=== PATIENT | female | born 1995 | race Caucasian/White ===

== ENCOUNTER 2018-03-26 19:21 | Emergency (ER) | payer BC ==
--- NOTE | 2018-03-26 20:21 | ER Document Report ---
ED Medical Screen (RME) - General Chief Complaint: Chest Pain Stated Complaint: CHEST PAIN Time Seen by Provider: 03/26/18 20:11 TRAVEL OUTSIDE OF THE [place] IN LAST 30 DAYS: No - HPI Notes: 03/26/18 20:21 Recently moved to the area with a history of lupus coming in for chest pain feeling unwell fevers patient not receive a flu shot this year - Related Data Allergies/Adverse Reactions: ciprofloxacin [From Cipro] Allergy (Severe, Verified 03/26/18 20:12) Anaphylaxis diphenhydramine [From Benadryl] Allergy (Severe, Verified 03/26/18 20:12) Anaphylaxis cephelexin Allergy (Severe, Uncoded 03/26/18 20:12) Anaphylaxis sulpha Allergy (Severe, Uncoded 03/26/18 20:12) Anaphylaxis Past Medical History - Social History Chew tobacco use (# tins/day): No Frequency of alcohol use: None Drug Abuse: None Renal/ Medical History: Reports: Hx Kidney Stones - stents. Denies: Hx Peritoneal Dialysis Past Surgical History: Reports: Hx Kidney (Renal Surgery) Physical Exam - Vital signs Vitals: Temp Pulse Resp BP Pulse Ox 98.4 F 97 16 111/77 100 03/26/18 19:40 03/26/18 19:40 03/26/18 19:40 03/26/18 19:40 03/26/18 19:40 Course - Vital Signs Vital signs: Temp Pulse Resp BP Pulse Ox 98.4 F 97 16 111/77 100 03/26/18 19:40 03/26/18 19:40 03/26/18 19:40 03/26/18 19:40 03/26/18 19:40
--- NOTE | 2018-03-26 20:48 | RADIOLOGY REPORT (SQ) ---
XR CHEST 2 VIEWS HISTORY: cp COMPARISON: None. FINDINGS: The heart size is normal. The lungs are clear. No pleural effusions or pneumothorax is seen. No acute bony findings. IMPRESSION: No evidence of acute cardiopulmonary disease.
[2018-03-26 21:01] LABS: ABSOLUTE EOSINOPHILS # (AUTO) 0.1 10^3/uL (0.0-0.6); ABSOLUTE LYMPHOCYTES (AUTO) 1.6 10^3/uL (0.5-4.7); ABSOLUTE MONOCYTES (AUTO) 0.8 10^3/uL (0.1-1.4); ABSOLUTE NEUT (AUTO) 12.1 10^3/uL (1.7-8.2); BASOPHILS % (AUTO) 0.2 % (0-2); EOSINOPHILS % (AUTO) 0.6 % (0-6); HEMATOCRIT 43.4 % (36.0-47.0); HEMOGLOBIN 14.9 g/dL (12.0-15.5); MEAN CORPUSCULAR HEMOGLOBIN 32.1 pg (27.0-33.4); MEAN CORPUSCULAR HGB CONC 34.4 g/dL (32.0-36.0); MEAN CORPUSCULAR VOLUME 93 fl (80-97); MONOCYTES % (AUTO) 5.2 % (3-13); PLATELET COUNT 428 10^3/uL (150-450); RED BLOOD COUNT 4.66 10^6/uL (3.72-5.28); RED CELL DISTRIBUTION WIDTH 12.7 % (11.5-14.0); TOTAL CELLS COUNTED % (AUTO) 100 %; WHITE BLOOD COUNT 14.6 10^3/uL (4.0-10.5)
[2018-03-26 21:04] LABS: APPEARANCE,URINE SLIGHTLY-CLOUDY; BILIRUBIN,URINE NEGATIVE (NEGATIVE); COLOR,URINE YELLOW; GLUCOSE, URINE NEGATIVE (NEGATIVE); KETONES,URINE NEGATIVE (NEGATIVE); LEUKOCYTE ESTERASE,URINE NEGATIVE (NEGATIVE); NITRITE,URINE NEGATIVE (NEGATIVE); PROTEIN,URINE NEGATIVE (NEGATIVE); URINE SPECIFIC GRAVITY 1.021
[2018-03-26 21:20] LABS: A TYPE INFLUENZA AG NEGATIVE (NEGATIVE); ALANINE AMINOTRANSFERASE 10 U/L (9-52); ALBUMIN 4.8 g/dL (3.5-5.0); ALKALINE PHOSPHATASE 70 U/L (38-126); ANION GAP 11 (5-19); ASPARTATE AMINO TRANSFERASE 13 U/L (14-36); B INFLUENZA AG NEGATIVE (NEGATIVE); BILIRUBIN,DIRECT 0.2 mg/dL (0.0-0.4); BILIRUBIN,TOTAL 0.5 mg/dL (0.2-1.3); BLOOD UREA NITROGEN 16 mg/dL (7-20); CALCIUM 9.6 mg/dL (8.4-10.2); CARBON DIOXIDE 28 mmol/L (22-30); CHLORIDE 104 mmol/L (98-107); GLUCOSE 85 mg/dL (75-110); LIPASE 61.9 U/L (23-300); POTASSIUM 4.6 mmol/L (3.6-5.0); SODIUM 143.3 mmol/L (137-145); TOTAL PROTEIN 7.3 g/dL (6.3-8.2)
[2018-03-26] MEDS ORDERED: KETOROLAC TROMETHAMINE INJ/PF 30 MG/1 ML SDV IV ONE (21:42)
[2018-03-26] MEDS ORDERED: ONDANSETRON HCL INJ/PF 4 MG/2 ML SDV IV ONE (21:42)
[2018-03-26] MEDS ORDERED: MORPHINE SULFATE 10 MG/ML INJ IV ONE ×2 (21:42→23:38)
--- NOTE | 2018-03-26 21:45 | ER Document Report ---
ED General - General Chief Complaint: Chest Pain Stated Complaint: CHEST PAIN Time Seen by Provider: 03/26/18 20:11 Mode of Arrival: Ambulatory Information source: Patient, [facility] Records Notes: 22-year-old female with lupus, lupus nephritis, hypoglycemia presents with complaint of left flank pain, fatigue, nausea. Patient states symptoms started 1 day prior to arrival. She describes the pain as a stabbing constant pain that radiates to her left lower quadrant. Patient does have a history of previous kidney stones with her last episode 2 months ago. She does report that she has required stents in the past. She is here from [place] and currently has no primary care physician or urologist. Patient admits to associated chills, sweats, dizziness. She states that she had an episode of "passing out". She states this is due to her hypoglycemia and has happened in the past. Patient does have a history of hypoglycemia and checks her glucose regularly. She denies any headache, vomiting, shortness of breath, upper abdominal pain, dysuria, hematuria, vaginal discharge. TRAVEL OUTSIDE OF THE [place] IN LAST 30 DAYS: No - HPI Onset: Yesterday Onset/Duration: Gradual, Persistent Quality of pain: Stabbing Severity: Moderate Associated symptoms: Body/muscle aches, Chills, Fever, Nausea, Sweating, Weakness. denies: Productive cough, Diarrhea, Vomiting, Shortness of breath Exacerbated by: Denies Relieved by: Denies Similar symptoms previously: Yes Recently seen / treated by doctor: No - Related Data Allergies/Adverse Reactions: ciprofloxacin [From Cipro] Allergy (Severe, Verified 03/26/18 20:12) Anaphylaxis diphenhydramine [From Benadryl] Allergy (Severe, Verified 03/26/18 20:12) Anaphylaxis cephelexin Allergy (Severe, Uncoded 03/26/18 20:12) Anaphylaxis sulpha Allergy (Severe, Uncoded 03/26/18 20:12) Anaphylaxis Past Medical History - General Information source: Patient, [facility] Records - Social History Smoking Status: Never Smoker Chew tobacco use (# tins/day): No Frequency of alcohol use: None Drug Abuse: None Lives with: Spouse/Significant other Family History: Reviewed & Not Pertinent Patient has suicidal ideation: No Patient has homicidal ideation: No Renal/ Medical History: Reports: Hx Kidney Stones - stents. Denies: Hx Peritoneal Dialysis Past Surgical History: Reports: Hx Kidney (Renal Surgery) Review of Systems - Review of Systems Constitutional: Chills, Malaise EENT: denies: Blurred vision, Nose congestion Cardiovascular: Palpitations, Dizziness. denies: Chest pain Respiratory: denies: Cough, Short of breath Gastrointestinal: Nausea. denies: Abdominal pain, Diarrhea, Vomiting, Constipation Genitourinary: Flank pain. denies: Dysuria, Hematuria Female Genitourinary: No symptoms reported Musculoskeletal: Back pain, Muscle pain Skin: denies: Rash Hematologic/Lymphatic: No symptoms reported Neurological/Psychological: denies: Confusion, Headaches -: Yes All other systems reviewed and negative Physical Exam - Vital signs Vitals: Temp Pulse Resp BP Pulse Ox 98.4 F 97 16 111/77 100 03/26/18 19:40 03/26/18 19:40 03/26/18 19:40 03/26/18 19:40 03/26/18 19:40 - Notes Notes: PHYSICAL EXAMINATION: GENERAL: Well-appearing, well-nourished and in no acute distress. HEAD: Atraumatic, normocephalic. EYES: Pupils equal round and reactive to light, extraocular movements intact, conjunctiva are normal. ENT: Nares patent, oropharynx clear without exudates. Moist mucous membranes. NECK: Normal range of motion, supple without lymphadenopathy LUNGS: Breath sounds clear to auscultation bilaterally and equal. No wheezes rales or rhonchi. HEART: Regular rate and rhythm without murmurs ABDOMEN: Soft, nontender, nondistended abdomen. No guarding, no rebound. No masses appreciated. Left CVA tenderness Female : deferred Musculoskeletal: Normal range of motion, no pitting or edema. No cyanosis. NEUROLOGICAL: Cranial nerves grossly intact. Normal speech, normal gait. Normal sensory, motor exams PSYCH: Normal mood, normal affect. SKIN: Warm, Dry, normal turgor, no rashes or lesions noted. Course - Re-evaluation Re-evalutation: Laboratory 03/26/18 03/26/18 03/26/18 19:29 20:20 20:20 WBC 14.6 H RBC 4.66 Hgb 14.9 Hct 43.4 MCV 93 MCH 32.1 MCHC 34.4 RDW 12.7 Plt Count 428 Seg Neutrophils % 83.0 H Lymphocytes % 11.0 L Monocytes % 5.2 Eosinophils % 0.6 Basophils % 0.2 Absolute Neutrophils 12.1 H Absolute Lymphocytes 1.6 Absolute Monocytes 0.8 Absolute Eosinophils 0.1 Absolute Basophils 0.0 Sodium 143.3 Potassium 4.6 Chloride 104 Carbon Dioxide 28 Anion Gap 11 BUN 16 Creatinine 0.70 Est GFR ( Amer) > 60 Est GFR (Non-Af Amer) > 60 Glucose 85 POC Glucose 84 Calcium 9.6 Total Bilirubin 0.5 Direct Bilirubin 0.2 Neonat Total Bilirubin Not Reportable Neonat Direct Bilirubin Not Reportable Neonat Indirect Bili Not Reportable AST 13 L ALT 10 Alkaline Phosphatase 70 Total Protein 7.3 Albumin 4.8 Lipase 61.9 Urine Color Urine Appearance Urine pH Ur Specific [place] Urine Protein Urine Glucose (UA) Urine Ketones Urine Blood Urine Nitrite Urine Bilirubin Urine Urobilinogen Ur Leukocyte Esterase Urine WBC (Auto) Squamous Epi Cells Auto Urine Mucus (Auto) Urine Ascorbic Acid Urine HCG, Qual Influenza A (Rapid) Influenza B (Rapid) 03/26/18 03/26/18 20:20 20:20 WBC RBC Hgb Hct MCV MCH MCHC RDW Plt Count Seg Neutrophils % Lymphocytes % Monocytes % Eosinophils % Basophils % Absolute Neutrophils Absolute Lymphocytes Absolute Monocytes Absolute Eosinophils Absolute Basophils Sodium Potassium Chloride Carbon Dioxide Anion Gap BUN Creatinine Est GFR ( Amer) Est GFR (Non-Af Amer) Glucose POC Glucose Calcium Total Bilirubin Direct Bilirubin Neonat Total Bilirubin Neonat Direct Bilirubin Neonat Indirect Bili AST ALT Alkaline Phosphatase Total Protein Albumin Lipase Urine Color YELLOW Urine Appearance SLIGHTLY-CLOUDY Urine pH 6.0 Ur Specific [place] 1.021 Urine Protein NEGATIVE Urine Glucose (UA) NEGATIVE Urine Ketones NEGATIVE Urine Blood NEGATIVE Urine Nitrite NEGATIVE Urine Bilirubin NEGATIVE Urine Urobilinogen 2.0 H Ur Leukocyte Esterase NEGATIVE Urine WBC (Auto) 0 Squamous Epi Cells Auto 1 Urine Mucus (Auto) RARE Urine Ascorbic Acid NEGATIVE Urine HCG, Qual NEGATIVE Influenza A (Rapid) NEGATIVE Influenza B (Rapid) NEGATIVE Chest X-Ray 03/26/18 20:15 IMPRESSION: No evidence of acute cardiopulmonary disease. Renal Ultrasound 03/26/18 21:41 IMPRESSION: Normal kidneys. Temp Pulse Resp BP Pulse Ox 98.4 F 97 16 111/77 100 03/26/18 19:40 03/26/18 19:40 03/26/18 19:40 03/26/18 19:40 03/26/18 19:40 03/26/18 23:40 03/26/18 23:40 22-year-old female with lupus, lupus nephritis, hypoglycemia presents with complaint of left flank pain, fatigue, nausea. Patient states symptoms started 1 day prior to arrival. She describes the pain as a stabbing constant pain that radiates to her left lower quadrant. Patient does have a history of previous kidney stones with her last episode 2 months ago. She does report that she has required stents in the past. She is here from [place] and currently has no primary care physician or urologist. Patient admits to associated chills, sweats. She denies any headache, vomiting, chest pain, shortness of breath, upper abdominal pain, dysuria, hematuria, vaginal discharge. Vital signs revi ewed and within normal limits upon arrival. Patient does not appear toxic or dehydrated. She is in no acute distress. Exam is significant for left CVA tenderness. CBC does show a leukocytosis of 14. CMP, urinalysis are unremarkable. Patient's glucose is 85. EKG shows patient be in normal sinus rhythm without evidence of widening QRS or prolonged QTC. Chest x-ray shows no evidence of acute pulmonary disease. Renal ultrasound shows no evidence of hydronephrosis. Patient did receive Zofran, Toradol and morphine. On reevaluation she is sleeping comfortably with her partner in her bed. Reviewed imaging and lab findings with the patient. Patient was advised to follow-up with her primary care physician as needed. Patient was evaluated and treated as appropriate for the patient's presenting symptoms and complaint, with consideration of any critical or life threatening conditions that may be associated with their obtained history and exam as noted above. All results were discussed with patient and her who is at the bedside. patient provided the opportunity to ask questions, and express concerns. Patient was educated on treatments based on their presumed diagnosis as noted above. At this time we will discharge the patient with return precautions and follow-up recomme ndations. Verbal discharge instructions given a the bedside. Medication warnings reviewed. Patient is in agreement with this plan and has verbalized understanding of return precautions. After careful consideration I feel that that patient can be safely discharged from the emergency department, they were advised to followup with a primary care physician in 2-3 days. Dictation on this chart was performed using voice recognition software and may result in unintended grammatical, spelling, syntax or errors. 03/26/18 23:50 - Vital Signs Vital signs: Temp Pulse Resp BP Pulse Ox 98.4 F 97 16 111/77 100 03/26/18 19:40 03/26/18 19:40 03/26/18 19:40 03/26/18 19:40 03/26/18 19:40 - Laboratory Result Diagrams: 03/26/18 20:20 03/26/18 20:20 Laboratory results interpreted by me: 03/26/18 03/26/18 03/26/18 20:20 20:20 20:20 WBC 14.6 H Seg Neutrophils % 83.0 H Lymphocytes % 11.0 L Absolute Neutrophils 12.1 H AST 13 L Urine Urobilinogen 2.0 H - Diagnostic Test Radiology reviewed: Image reviewed, Reports reviewed - EKG Interpretation by Me EKG shows normal: Sinus rhythm Rate: Normal Rhythm: NSR When compared to previous EKG there are: No significant change Discharge - Discharge Clinical Impression: Left flank pain, Nausea, History of endometriosis, History of kidney stones Low back pain Qualifiers: Chronicity: acute Back pain laterality: bilateral Sciatica presence: without sciatica Qualified Code(s): M54.5 - Low back pain Condition: Good Disposition: HOME, SELF-CARE Instructions: Colic ([facility]), Flank Pain ([facility]), Low Back Pain ([facility]), Nausea or Vomiting, Nonspecific ([facility])
--- NOTE | 2018-03-26 23:36 | RADIOLOGY REPORT (SQ) ---
CLINICAL HISTORY: left flank pain h/o stones COMPARISON: None. TECHNIQUE: US RETROPERITONEUM on 03/26/2018 9:41 PM [employer] REPRESENTATIVE FINDINGS: Right kidney measures 9.6 cm and left kidney measures 10.5 cm. There is no hydronephrosis. Both kidneys are unremarkable. Urinary bladder contains small amount of urine. Bilateral ureteral jets are not seen. IMPRESSION: Normal kidneys.
[2018-03-27 00:13] VITALS: BP 121/72
--- NOTE | 2018-03-27 07:55 | EKG REPORT ---
SEVERITY:- NORMAL ECG - SINUS RHYTHM : Confirmed by: Marcus Domingo MD 27-Mar-2018 07:53:30
== END 2018-03-27 00:13 | disposition home or self-care (01) ==
LOC: ER 19:21
DX: M54.5 Low back pain (principal); R10.9 Unspecified abdominal pain; R53.83 Other fatigue; R11.0 Nausea; D72.829 Elevated white blood cell count, unspecified; M32.14 Glomerular disease in systemic lupus erythematosus; R68.83 Chills (without fever); R42 Dizziness and giddiness; R61 Generalized hyperhidrosis; R53.81 Other malaise; R00.2 Palpitations; R53.1 Weakness; R55 Syncope and collapse; Z87.42 Personal history of other diseases of the female genital tract; Z87.442 Personal history of urinary calculi; Z87.892 Personal history of anaphylaxis; Z88.1 Allergy status to other antibiotic agents; Z88.8 Allergy status to other drugs, medicaments and biological substances
CPT/HCPCS: 93005; 96376; 99284; 96374; 96375; 36415; 82962; 83690; 85025; 81025; 80053; 81001; 87804; 71046; 76770; 93010; J1885; J2270 ×2; J2405

== ENCOUNTER 2018-05-08 16:07 | Emergency (ER) | payer BC ==
--- NOTE | 2018-05-08 21:25 | ER Document Report ---
ED General - General Chief Complaint: Passed Out Prior to Arrival Stated Complaint: FEVER Time Seen by Provider: 05/08/18 21:13 Notes: Patient is a 22-year-old female who presents the emergency department with a chief complaint of severe pain and fever. She states that she has had ear discharge from the right ear also. She is described as a clear discharge. On Friday she was diagnosed with influenza A at an urgent care. She was given x ofluza on that day and she vomited. She states that her fever was 104 today. She denies any nausea, vomiting, or diarrhea. Her temperature here in the emergency department is 98. She took ibuprofen and Tylenol prior to arrival. TRAVEL OUTSIDE OF THE [place] IN LAST 30 DAYS: No - Related Data Allergies/Adverse Reactions: ciprofloxacin [From Cipro] Allergy (Severe, Verified 03/26/18 20:12) Anaphylaxis diphenhydramine [From Benadryl] Allergy (Severe, Verified 03/26/18 20:12) Anaphylaxis cephelexin Allergy (Severe, Uncoded 03/26/18 20:12) Anaphylaxis sulpha Allergy (Severe, Uncoded 03/26/18 20:12) Anaphylaxis Past Medical History - Social History Smoking Status: Never Smoker Family History: Reviewed & Not Pertinent Renal/ Medical History: Reports: Hx Kidney Stones - stents. Denies: Hx Peritoneal Dialysis Past Surgical History: Reports: Hx Kidney (Renal Surgery) Review of Systems - Review of Systems Notes: REVIEW OF SYSTEMS: CONSTITUTIONAL : See HPI EENT: See HPI CARDIOVASCULAR: Denies chest pain. RESPIRATORY: Denies shortness of breath, cough, congestion, difficulty breathing, or wheezing. GASTROINTESTINAL: Denies nausea, vomiting, and diarrhea. Denies abdominal pain. Denies constipation. GENITOURINARY: Denies difficulty urinating, burning, blood in urine, urgency or frequency. MUSCULOSKELETAL: Denies neck and back pain. Denies joint pain or swelling. SKIN: Denies rash, itchiness, or lesions HEMATOLOGIC : Denies easy bruising or bleeding. LYMPHATIC: Denies swollen, painful, enlarged glands. NEUROLOGICAL: Denies no numbness or tingling denies weakness. Denies headache. Denies altered mental status. Denies alteration in speech. PSYCHIATRIC: Denies stress, anxiety, alteration in sleep patterns, or depression. All other systems reviewed and negative. Physical Exam - Vital signs Vitals: Temp Pulse Resp BP Pulse Ox 98.5 F 99 16 115/89 H 95 05/08/18 16:36 05/08/18 16:36 05/08/18 16:36 05/08/18 16:36 05/08/18 16:36 - Notes Notes: PHYSICAL EXAMINATION: GENERAL: Appears well, healthy, well-nourished, no acute distress. HEAD: Normocephalic, atraumatic. EYES: PERRL, conjunctiva normal, all extraocular movements intact, sclera non icteric ENT: Moist mucous membranes. Right ear injected. Erythema noted. NECK: Supple, no noticeable swelling, redness, rash. Normal range of motion. LUNGS: Equal breath sounds bilaterally and clear to auscultation. No wheezes rales or rhonchi. CARDIOVASCULAR: S1-S2, regular rate, regular rhythm. Radial pulses 2+, normal. ABDOMEN: Normoactive bowel sounds. Soft, nontender, no guarding, no rebound tenderness, and no masses palpated. EXTREMITIES: Normal strength and range of motion, no pitting or edema. No cyanosis. NEUROLOGICAL: Moves all extremities upon command. Strength 5/5 in all extremities. PSYCH: Normal mood, normal affect. SKIN: Warm, dry. No rash, lesions, ulcerations noted. Normal skin turgor. Course - Re-evaluation Re-evalutation: 05/08/18 21:27 Patient's exam is consistent with acute otitis media. She will be given amoxicillin. She will receive a dose here in the emergency department. The patient reports a fever of 104 today her temperature is 98.5 here in the emergency department. Her vital signs are all stable. No tachycardia noted. She appears well. She states that she has not taken any medication to help with her pain. She has not taken any Motrin or Tylenol. To be sent home with Motrin and Tylenol. Verbal discharge instructions were given to the patient. They ve rbalized understanding. They are stable for discharge. - Vital Signs Vital signs: Temp Pulse Resp BP Pulse Ox 98.7 F 86 16 128/88 H 99 05/08/18 21:28 05/08/18 21:28 05/08/18 21:28 05/08/18 21:28 05/08/18 21:28 Discharge - Discharge Clinical Impression: Acute otitis media Qualifiers: Otitis media type: mucoid Laterality: right Qualified Code(s): H65.111 - Acute and subacute allergic otitis media (mucoid) (sanguinous) (serous), right ear Condition: Stable Disposition: HOME, SELF-CARE Additional Instructions: You were seen today in the emergency department for a fever. You have an ear infection to your right ear. You have been given amoxicillin. Please finish all your medication as prescribed. Follow-up with your primary care doctor in regards to this visit. Prescriptions: Amoxicillin Trihydrate [Amoxil 875 mg Tablet] 1 tab PO BID #20 tablet
[2018-05-08] MEDS ORDERED: AMOXICILLIN TRIHYDRATE 500 MG CAPSULE PO ONE (21:28)
[2018-05-08 21:29] VITALS: BP 128/88
== END 2018-05-08 21:35 | disposition home or self-care (01) ==
LOC: ER 16:07
DX: H65.111 Acute and subacute allergic otitis media (mucoid) (sanguinous) (serous), right ear (principal); R50.9 Fever, unspecified; H92.11 Otorrhea, right ear; R11.10 Vomiting, unspecified; Z79.899 Other long term (current) drug therapy
CPT/HCPCS: 99283